=== PATIENT | male | born 1955 | race Caucasian/White ===

== ENCOUNTER → 2016-12-04 | Outpatient (CLI) | payer SELFPAY ==
[~2016-12-04] MED LIST: ACET-2321 PO; CIPR-280 PO; CITA20TA9 PO; TAMS-1 PO
--- NOTE | 2016-12-04 11:51 | DI ---
Indication: ITS.REASON: M25.551 RIGHT HIP PAIN HIP RIGHT 2 VIEW: Comparison: None Technique: AP and frog-leg view Findings: Patient showed good preservation the joint space. No acute bony findings are seen. Neither fracture, dislocation or any sort of lytic or blastic lesions seen. Impression: No acute abnormality appreciated. .
--- NOTE | 2016-12-04 11:53 | DI ---
Indication: ITS.REASON: M25.561 PAIN IN RIGHT KNEE KNEE BILAT 4 OR > MORE VIEWS Comparison: 12/13/2010 Findings: Patient continues to show previously noted postop changes of a left total knee. The right knee obtained in weightbearing shows narrowing of the medial compartment. [place] view showed degenerative changes in the patellofemoral joint as well. No significant joint effusions or any acute bony findings seen. Impression: 1. Postoperative changes of a left total knee. 2. Patient showed degenerative changes both involving the medial compartment as well as patellofemoral compartment of the right knee with no acute bony findings. .
== END ==
LOC: IMA 10:32
PROVIDERS: ATTEND Internal Medicine
DX: M17.11 Unilateral primary osteoarthritis, right knee (principal); Z98.890 Other specified postprocedural states; M25.551 Pain in right hip; M25.561 Pain in right knee